=== PATIENT | male | born 1970 | race Two or more races ===

== ENCOUNTER 2021-01-15 22:47 | Observation (INO) | payer MEDICAID, OTHER, SELFPAY ==
[~2021-01-15] VITALS: Ht 167.6 cm; Wt 80.0 kg
--- NOTE | 2021-01-15 23:18 | NUR ---
FOOTWEAR SALES REPRESENTATIVE: PT. TO SECURED ROOM FROM WALL WITH OFFICERS AT THIS TIME.
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
[2021-01-16 00:08] LABS: BASOPHILS % (AUTO) 0 % (0-1); EOSINOPHILS % (AUTO) 5 % (1-7); LYMPHOCYTES % (AUTO) 34 % (22-44); MEAN CORPUSCULAR HEMOGLOBIN 31.4 pg (27.5-34.5); MEAN CORPUSCULAR HGB CONC 34.9 g/dL (33.2-36.2); MEAN PLATELET VOLUME 7.4 fL (7.4-10.4); MONOCYTES % (AUTO) 7 % (2-9); NEUTROPHILS % (AUTO) 54 % (42-75); PLATELET COUNT 342 x10^3/uL (130-400); RED BLOOD COUNT 5.05 x10^6/uL (4.38-5.82); RED CELL DISTRIBUTION WIDTH 13.3 % (9.4-14.8)
[2021-01-16 00:11] LABS: ALBUMIN 3.5 g/dL (3.4-5.0); ANION GAP 4 mmol/L (5-15); CALCIUM 7.9 mg/dL (8.5-10.1); CHLORIDE 108 mmol/L (98-107)
[2021-01-16 00:13] LABS: SALICYLATE LEVEL < 1.7 mg/dL (2.8-20.0)
[2021-01-16 00:14] LABS: ALANINE AMINOTRANSFERASE 19 U/L (12-78); ALKALINE PHOSPHATASE 78 U/L (45-117); BILIRUBIN,TOTAL 0.6 mg/dL (0.2-1.0); CREATININE 0.74 mg/dL (0.7-1.3); TOTAL PROTEIN 7.2 g/dL (6.4-8.2)
--- NOTE | 2021-01-16 00:31 | NUR ---
Pt provided with sandwich, PO fluids including juice, soda and water.
--- NOTE | 2021-01-16 01:00 | NUR ---
Pt resting comfortably at this time, denies needs.
--- NOTE | 2021-01-16 02:05 | NUR ---
Break RN: patient sleeping in [facility]. Respirations even and unlabored. Room secured, belongings locked in cabinet.
--- NOTE | 2021-01-16 03:00 | NUR ---
Patient sleeping in gurney. Respirations even and unlabored. Room secured, belongings locked in cabinet. Pt denies further needs.
--- NOTE | 2021-01-16 03:31 | NUR ---
FAXED PACKET TO [facility], PT IS SELF PAY
[2021-01-16 03:53] LABS: AMPHETAMINE SCREEN, URINE Positive (Negative); BARBITURATE SCREEN, URINE Negative (Negative); BENZODIAZEPINE SCREEN, URINE Negative (Negative); CANNABINOID SCREEN, URINE Negative (Negative); COCAINE SCREEN, URINE Negative (Negative); METHADONE SCREEN, URINE Negative (Negative); OPIATE SCREEN, URINE Negative (Negative)
--- NOTE | 2021-01-16 04:09 | NUR ---
RECIEVED REPORT FROM LEONORA ALVAREZ. PATIENT SLEEPING ON GURNEY, SITTER AT BEDSIDE, BELONGINGS SECURED IN LOCKER, GARAGE DOORS LOCKED, NAD AT THIS TIME.
--- NOTE | 2021-01-16 04:11 | NUR ---
Report to LEONORA Lowry at this time. Care relinquished.
--- NOTE | 2021-01-16 05:06 | NUR ---
PATIENT MOVED TO ROOM 2, PLACED IN HOSPITAL BED, PATIENT AMBULATED WITH A STEADY GATE TO ROOM.
--- NOTE | 2021-01-16 05:58 | NUR ---
PATIENT RESTING ON GURNEY, SITTER AT BEDSIDE, BELONGINGS SECURED IN LOCKER, GARAGE DOORS LOCKED, NAD AT THIS TIME.
--- NOTE | 2021-01-16 06:57 | NUR ---
REPORT RECIEVED FROM LEONORA GALVEZ
--- NOTE | 2021-01-16 07:53 | NUR ---
PT RESTING COMFORTABLY IN BED WAITING ON MEAL TRAY. SITTER AT BEDSIDE. ROOM MADE SAFE. SUICIDE PERCAUTIONS INTACT. WILL CONTINUE TO MONITOR.
--- NOTE | 2021-01-16 08:31 | NUR ---
MEAL PROVIDED, ALONG WITH TOOTHPASTE AND BRUSH, AM CARE PROVIDED
--- NOTE | 2021-01-16 09:33 | NUR ---
AMELIA. PT RESTING IN BED QUIETLY. SITTER AT BEDSIDE. SUICIDE PERCAUTIONS MAINTIAINED. WILL CONTINUE TO MONITOR.
--- NOTE | 2021-01-16 09:49 | NUR ---
MEAL PROVIDED, ALONG WITH TOOTHPASTE AND BRUSH, AM CARE PROVIDED
--- NOTE | 2021-01-16 11:01 | NUR ---
AMELIA. PT RESTING IN BED QUIETLY. SITTER AT BEDSIDE. SUICIDE PERCAUTIONS MAINTIAINED. WILL CONTINUE TO MONITOR.
--- NOTE | 2021-01-16 12:05 | NUR ---
MEAL TRAY PROVIDED TO PTJohanna BORDEN AT BEDSIDE. SUICIDE PERCAUTIONS MAINTED. WILL CONTINUE TO MONITOR
--- NOTE | 2021-01-16 13:28 | NUR ---
CARE TRANSFERED REPORT GIVEN TO LEONORA MARROQUIN
--- NOTE | 2021-01-16 14:03 | NUR ---
PT SITTING UP IN BED, NAD NOTED AT THIS TIME. SITTER OUTSIDE OF ROOM FOR DIRECT OBSERVATION AND Q15 MIN SAFETY CHECKS.
--- NOTE | 2021-01-16 15:10 | NUR ---
PT RESTING WITH EYES CLOSED IN BED, SITTER OUTSIDE OF ROOM FOR DIRECT OBSERVATION AND Q15 MIN SAFETY CHECKS.
[2021-01-16] MEDS ORDERED: FLUOXETINE 10 MG CAP PO SCH (16:00)
--- NOTE | 2021-01-16 16:02 | NUR ---
PT USING [employer] PHONE TO HAVE FRIEND COME AND GET THE KEYS TO HIS TRUCK SO THAT IT IS NOT TOWED.
--- NOTE | 2021-01-16 16:04 | NUR ---
REPORT TO LEONORA SEAMAN.
--- NOTE | 2021-01-16 17:02 | NUR ---
PT RESTING WITH EYES CLOSED IN BED. NAD NOTED AT THIS TIME. SITTER OUTSIDE OF ROOM FOR DIRECT OBSERVATION AND Q15 MIN SAFETY CHECKS.
[2021-01-16] MEDS ORDERED: FLUOXETINE 10 MG CAP ONE (18:24)
--- NOTE | 2021-01-16 18:49 | NUR ---
report recieved from ladonna lane
--- NOTE | 2021-01-16 21:30 | NUR ---
pt sleeping in bed, resp even/unlabored. in line of sight of sitter
--- NOTE | 2021-01-17 00:58 | NUR ---
REPORT FROM JEAN ASSUMED CARE OF PT
--- NOTE | 2021-01-17 01:00 | NUR ---
PT SLEEPING IN NAD, SITTER AT DOORWAY
--- NOTE | 2021-01-17 03:18 | NUR ---
PT SLEEPING IN NAD SITTER AT DOOR
--- NOTE | 2021-01-17 03:34 | NUR ---
REPORT FROM NICK LEA
--- NOTE | 2021-01-17 04:40 | NUR ---
PT RESTING IN BED WITH EYES CLOSED, EVEN AND SYMMETRICAL CHEST RISE, SITTER IN VIEW OF PT, WCTM
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
--- NOTE | 2021-01-17 06:58 | NUR ---
Report to Nyla LEA
--- NOTE | 2021-01-17 07:02 | NUR ---
Pt report from LEONORA Bergman. Pt care to be assumed.
--- NOTE | 2021-01-17 07:07 | NUR ---
Pt asleep in LT lateral position; even chest rise noted. Sitter outside room.
--- NOTE | 2021-01-17 07:12 | NUR ---
Breakfast tray ordered.
--- NOTE | 2021-01-17 08:10 | NUR ---
Breakfast tray delivered. Pt asleep.
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
--- NOTE | 2021-01-17 10:03 | NUR ---
George marcus in ED - 01/17/21 at 1004 by ZAHRA Pt requesting nicotine patch. Will notify ERP.
--- NOTE | 2021-01-17 11:50 | NUR ---
LEONORA Gonzalez, from [facility] at BS. Pt to be DC'd.
[2021-01-17] MEDS ORDERED: FLUOXETINE 10 MG CAP PO ONE (12:30)
[2021-01-17] MEDS ORDERED: FLUOXETINE 10 MG CAP ONE (12:56)
[2021-01-17 13:04] VITALS: BP 123/66
--- NOTE | 2021-01-17 13:43 | NUR ---
DC instructions discussed w/ pt, assistance from LEONORA Beckwith (montserratian speaker). Pt verbalized understanding. Pt ambulatory to ED exit w/ steady gait.
== END 2021-01-17 13:45 | disposition home or self-care (01) ==
LOC: ED 23:15 → EDIP 01-16 05:42
PROVIDERS: ADMIT Emergency Medicine; ATTEND Emergency Medicine
DX: F32.9 Major depressive disorder, single episode, unspecified (principal); R45.851 Suicidal ideations; F15.90 Other stimulant use, unspecified, uncomplicated; F43.22 Adjustment disorder with anxiety; Z59.0 Homelessness; Z91.5 Personal history of self-harm
CPT/HCPCS: 36415; 80053; 80299; 80307; 80320; 80329; 85025; 99284; G0378; G0480